=== PATIENT | female | born 1985 | race Caucasian/White ===

== ENCOUNTER 2019-01-12 11:02 | Emergency (ER) | payer OTHER, SELFPAY ==
[2019-01-12] MEDS ORDERED: Lorazepam 1 MG TAB ONE (11:46)
[2019-01-12 12:22] LABS: #Basophils 0.1 thou/uL (0.0-0.2); #Eosinphils 0.3 thou/uL (0.0-0.7); #Lymphocytes 3.2 thou/uL (1.20-3.40); #Monocytes 0.4 thou/uL (0.11-0.59); #Neutrophils 5.8 thou/uL (1.40-6.50); %Basophils 1.1 % (0.0-1.0); %Eosinophils 2.9 % (0.0-10.0); %Lymphocytes 32.7 % (21.0-51.0); %Monocytes 4.4 % (0.0-10.0); %Neutrophils 58.9 % (42.0-75.0); Hemoglobin 12.8 g/dL (12.0-16.0); Mean Corpuscular Hemoglobin 31.5 pg (27.0-31.0); Mean Corpuscular Volume 92.7 fL (78.0-98.0); Platelet Count 326 thou/uL (130-400); RBC Distribution Width 11.9 % (11.5-14.5); Red Blood Cell (RBC) Count 4.06 mill/uL (4.20-5.40); White Blood Cell (WBC) Count 9.9 thou/uL (4.8-10.8)
[2019-01-12 12:44] LABS: ALT (SGPT) 15 U/L (8-55); AST (SGOT) 18 U/L (5-34); Albumin 4.5 g/dL (3.5-5.0); Alkaline Phosphatase 40 U/L (40-150); Anion Gap 12 mmol/L (10-20); BUN (Urea Nitrogen) 13 mg/dL (7.0-18.7); Bilirubin, Total 0.7 mg/dL (0.2-1.2); CK (CPK) 120 U/L (29-168); Calc. Creatinine Clearance 0 mL/min (70-130); Calcium 9.3 mg/dL (7.8-10.44); Carbon Dioxide 25 mmol/L (22-29); Chloride 104 mmol/L (98-107); Estimated GFR-MDRD 78; Globulin 2.7 g/dL (2.4-3.5); Glucose 86 mg/dL (70-105); Potassium 3.9 mmol/L (3.5-5.1); Protein, Total 7.2 g/dL (6.0-8.3); Sodium 137 mmol/L (136-145)
== END 2019-01-12 13:26 | disposition home or self-care (01) ==
LOC: ERS 11:02
DX: R42 Dizziness and giddiness (principal); T43.225A Adverse effect of selective serotonin reuptake inhibitors, initial encounter; F41.9 Anxiety disorder, unspecified; F32.9 Major depressive disorder, single episode, unspecified
CPT/HCPCS: 36415; 80053; 82550; 83605; 85025

== ENCOUNTER 2019-05-09 08:40 | Outpatient (CLI) | payer BC ==
--- NOTE | 2019-05-09 11:28 | RAD ---
EXAM: XR Barium Swallow Esophagus PROVIDED CLINICAL HISTORY: Globus sensation and excessive belching. 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 Cardiac silhouette and pulmonary vasculature are within normal limits. Double contrast esophagram was performed in usual fashion. The esophagus demonstrates a normal appear ance without evidence of a mucosal irregularity or focal area of narrowing. Normal esophageal peristalsis is noted during the exam. There is no evidence of a hiatal hernia, and no gastroesophagea l reflux is demonstrated during the exam. A 12.5 mm barium tablet was not administered as requested by ordering physician. Fluoroscopy: Time-0.7 minutes Total dose-22.91 mGy IMPRESSION: Normal esophagram.
== END 2019-05-09 08:41 | disposition home or self-care (01) ==
LOC: RAD 08:40
PROVIDERS: ATTEND Internal Medicine Gastroenterology
DX: R14.2 Eructation (principal); K64.8 Other hemorrhoids; F45.8 Other somatoform disorders; F41.9 Anxiety disorder, unspecified
CPT/HCPCS: 74220